=== PATIENT | female | born 1955 | race Caucasian/White ===

== ENCOUNTER → 2025-01-17 08:01 | Outpatient (REF) | payer MEDICARE, SELFPAY ==
[2025-01-17 09:24] LABS: Hematocrit 43.1 % (37.0-47.0); Hemoglobin 13.8 g/dL (12.0-16.0); Mean Corp Hgb Conc. 32.0 g/dL (33.0-37.0); Mean Corpuscular Volume 92.3 fL (81.0-99.0); Nucleated Red Blood Cells % 0 %; Platelet Count 241 10^3/uL (130-400); Red Cell Dist. Width 13.8 % (11.5-14.5)
[2025-01-17 09:41] LABS: ALT (SGPT) 22 U/L (0-35); AST (SGOT) 19 U/L (14-36); Albumin 4.4 g/dl (3.5-5.0); Alkaline Phosphatase 51 U/L (38-126); Blood Urea Nitrogen 26 mg/dl (7-17); Calcium 9.7 mg/dl (8.4-10.2); Carbon Dioxide 28 mmol/L (22-30); Chloride 105 mmol/L (98-107); Glucose 105 mg/dl (70-99); HDL Cholesterol 60 mg/dl; LDL Cholesterol, Calculated 116 mg/dl; Sodium 138 mmol/L (135-145); Total Protein 6.8 g/dl (6.3-8.2); Very Low Density Lipoprotein 16 mg/dl (0-30); eGFR > 60.00
[2025-01-17 09:46] LABS: Potassium 4.8 mmol/L (3.5-5.1)
[2025-01-17 09:50] LABS: C-Reactive Protein < 5.00 mg/L (0.0-10.00)
[2025-01-17 10:07] LABS: Vitamin D, 25-OH*** 47.2 ng/mL (30-80)
[2025-01-17 10:36] LABS: Urine Character Clear (Clear)
[2025-01-17 11:28] LABS: Glycohemoglobin (HgbA1c) 6.1 % (4.0-5.9)
[2025-01-17 11:38] LABS: Urine Squamous Cell >30 /LPF (Few)
[2025-01-17 11:45] LABS: Urine Red Blood Cell 0-2 /HPF (0-2)
== END ==
LOC: REG 08:01
PROVIDERS: ATTENDING PHYSICIAN Nurse Practitioner Family
DX: R73.03 Prediabetes (principal); R10.24 Suprapubic pain; K90.0 Celiac disease; Z87.19 Personal history of other diseases of the digestive system; Z86.19 Personal history of other infectious and parasitic diseases; E78.2 Mixed hyperlipidemia; Z63.4 Disappearance and death of family member; G47.62 Sleep related leg cramps; E55.9 Vitamin D deficiency, unspecified
CPT/HCPCS: 36415; 80053; 80061; 81003; 81015; 82306; 83036; 84100; 84443; 85025; 86140; 87086

== ENCOUNTER → 2025-01-28 13:55 | Outpatient (REF) | payer MEDICARE, SELFPAY | LOC: RAD 13:55 | PROVIDERS: ATTENDING PHYSICIAN Nurse Practitioner Family | DX: R73.03 Prediabetes (principal); R10.24 Suprapubic pain; K90.0 Celiac disease; Z87.19 Personal history of other diseases of the digestive system; E78.2 Mixed hyperlipidemia; Z63.4 Disappearance and death of family member | CPT/HCPCS: 75571 ==

== ENCOUNTER → 2025-02-22 07:11 | Outpatient (REF) | payer MEDICARE, SELFPAY | LOC: MRI 3T 07:11 | PROVIDERS: ATTENDING PHYSICIAN Student in an Organized Health Care Education/Training Program; FAMILY PHYSICIAN Nurse Practitioner Family | DX: S46.011A Strain of muscle(s) and tendon(s) of the rotator cuff of right shoulder, initial encounter (principal); M75.21 Bicipital tendinitis, right shoulder | CPT/HCPCS: 73221 ==